=== PATIENT | female | born 1985 | race Two or more races ===

== ENCOUNTER 2016-03-15 12:42 | Emergency (ER) | payer OTHER ==
[~2016-03-15] VITALS: Ht 149.9 cm; Wt 43.5 kg
[~2016-03-15 12:42] MED LIST: CELEXA20 MG PO; ENDOCET 5-3251 EACH PO; FEROSUL325 MG PO; FLINTSTONES1 EACH PO; IBUPROFEN800 MG PO; Motrin PO; NIFEDIPINE ER30 MG PO; NOHOMEMEDS; PEPTO BISMOL262 MG PO; PERCOCET 5/31 TABLET PO; SEROQUEL300 MG PO; ZOFRAN ODT4 MG PO; ZOFRAN4 MG PO
[2016-03-15 13:30] LABS: ADD MIUA? NO; BILIRUBIN NEGATIVE; BLOOD NEGATIVE; COLOR YELLOW ((YELLOW)); GLUCOSE (STRIP) NEGATIVE; KETONES 40; LEUKOCYTES NEGATIVE; NITRITE NEGATIVE; PROTEIN (STRIP) TRACE; SPECIFIC GRAVITY 1.026 (1.000-1.030); UROBILINOGEN 0.2 MG/DL (0.2-1.0)
[2016-03-15 14:18] LABS: HEMATOCRIT 37.2 % (36.0-46.0); MCH 31.2 PG (29.0-34.0); MCHC 34.4 G/DL (30.0-36.0); MCV 90.7 FL (83-99); MEAN PLAT.VOLUME 9.2 uM^3 (9.5-12.4); PLATELET COUNT 297 K/uL (156-360); RBC DIS.WIDTH-CV 14.2 % (11.8-14.6); RBC DIS.WIDTH-SD 46.1 % (39-53)
[2016-03-15 14:26] LABS: CHLORIDE 112 mEq/L (99-109); POTASSIUM 3.4 mEq/L (3.7-5.4); SODIUM 141 mEq/L (136-147)
[2016-03-15 14:28] LABS: GLUCOSE 83 mg/dL (70-99)
[2016-03-15 14:29] LABS: ANION GAP 14 MEQ/L (2-14)
[2016-03-15 14:31] LABS: GFR ESTIMATE (CALCULATED) > 59 mL/min/
[2016-03-15 14:32] LABS: UREA NITROGEN (BUN) 15 mg/dL (9-23)
[2016-03-15 14:40] LABS: QUANTITATIVE HCG < 4.0 MIU/ML
[2016-03-15] MEDS ORDERED: INDOCIN50 MG PO (17:29)
[2016-03-15] MEDS ORDERED: ULTRACET1 TABLET PO (17:29)
[2016-03-15 17:37] VITALS: BP 110/84
[2016-03-16 12:57] LABS: CHLAMYDIA TRACHOMATIS NEGATIVE; NEISSERIA GONORRHOEAE NEGATIVE
== END 2016-03-15 17:38 | disposition home or self-care (01) ==
LOC: EME → EDBD 12:42 → EME 12:42
PROVIDERS: Physician Assistant
DX: N83.201 Unspecified ovarian cyst, right side (principal); E86.0 Dehydration; D72.829 Elevated white blood cell count, unspecified; F17.200 Nicotine dependence, unspecified, uncomplicated
CPT/HCPCS: 74177; 76856; 80048; 81003; 84702; 85027; 87210; 87491; 87591; 99281; 99285; J1885; J2405; J3010; J7030

== ENCOUNTER 2016-03-19 09:37 | Emergency (ER) | payer OTHER ==
[~2016-03-19] VITALS: Ht 149.9 cm; Wt 38.6 kg
[~2016-03-19 09:37] MED LIST changes: +INDOCIN50 MG PO; +ULTRACET1 TABLET PO
[2016-03-19 10:39] LABS: HEMATOCRIT 38.2 % (36.0-46.0); MCH 30.2 PG (29.0-34.0); MCHC 33.8 G/DL (30.0-36.0); MCV 89.5 FL (83-99); MEAN PLAT.VOLUME 9.2 uM^3 (9.5-12.4); PLATELET COUNT 309 K/uL (156-360); RBC DIS.WIDTH-CV 13.6 % (11.8-14.6); RBC DIS.WIDTH-SD 44.2 % (39-53); RED BLOOD COUNT 4.27 M/uL (3.80-5.20); WHITE BLOOD COUNT 11.1 K/uL (4.1-10.2)
[2016-03-19 11:14] LABS: CHLORIDE 105 mEq/L (99-109); POTASSIUM 2.9 mEq/L (3.7-5.4); SODIUM 140 mEq/L (136-147)
[2016-03-19 11:16] LABS: GLUCOSE 90 mg/dL (70-99)
[2016-03-19 11:18] LABS: ANION GAP 9 MEQ/L (2-14); TOTAL BILIRUBIN 0.2 mg/dL (0.0-1.0)
[2016-03-19 11:20] LABS: ALKALINE PHOSPHATASE 53 IU/L (3-129); GFR ESTIMATE (CALCULATED) > 59 mL/min/
[2016-03-19 11:21] LABS: UREA NITROGEN (BUN) 18 mg/dL (9-23)
[2016-03-19 11:24] LABS: LIPASE 15 U/L (1.0-51.0)
[2016-03-19 11:30] LABS: QUANTITATIVE HCG < 4.0 MIU/ML
[2016-03-19 12:26] LABS: ADD MIUA? YES; BILIRUBIN MODERATE; BLOOD LARGE; COLOR DK YELLOW ((YELLOW)); GLUCOSE (STRIP) NEGATIVE; KETONES >=80; LEUKOCYTES NEGATIVE; NITRITE NEGATIVE; PROTEIN (STRIP) 30; SPECIFIC GRAVITY 1.039 (1.000-1.030)
[2016-03-19 13:01] LABS: BACTERIA 1+ /HPF; CASTS NONE SEEN /LPF; CRYSTALS NONE SEEN; EPITHELIAL CELLS 1+ /HPF; MUCUS 2+ /LPF; RED BLOOD CELLS RARE /HPF (0-5); UCUL ADDED? NO; WHITE BLOOD CELLS NONE SEEN /HPF (0-5)
[2016-03-19 13:16] LABS: ICTOTEST NEGATIVE
[2016-03-19] MEDS ORDERED: ZOFRAN ODT4 MG PO (15:36)
[2016-03-19] MEDS ORDERED: ULTRAM50 MG PO (15:36)
[2016-03-19 15:56] VITALS: BP 116/75
== END 2016-03-19 15:57 | disposition home or self-care (01) ==
LOC: EME 09:37
DX: R10.10 Upper abdominal pain, unspecified (principal); N83.201 Unspecified ovarian cyst, right side; F17.200 Nicotine dependence, unspecified, uncomplicated
CPT/HCPCS: 74177; 80053; 81003; 83690; 84702; 85027; 99281; 99285; J1885; J7030